=== PATIENT | male | born 1990 | race Caucasian/White ===

== ENCOUNTER 2016-11-23 14:37 | Emergency (ER) | payer OTHER ==
[~2016-11-23] VITALS: Ht 172.7 cm; Wt 68.0 kg
[~2016-11-23 14:37] MED LIST: ALBU0.212 IH; LORA10TA60 PO; OMEP20 PO
[2016-11-23] MEDS ORDERED: LIDOCAINE HCL 2% VISCOUS 15 ML SOLUTION UDCUP PO ONE (15:45)
[2016-11-23 17:05] VITALS: BP 115/78
[2016-11-23] MEDS ORDERED: IBUPROFEN 600 MG TABLET PO ONE (18:00)
== END 2016-11-23 17:53 | disposition home or self-care (01) ==
LOC: EMS 14:40
DX: S01.511A Laceration without foreign body of lip, initial encounter (principal); J45.909 Unspecified asthma, uncomplicated; Z91.018 Allergy to other foods; W22.8XXA Striking against or struck by other objects, initial encounter; Y93.89 Activity, other specified; Y92.89 Other specified places as the place of occurrence of the external cause; Y99.8 Other external cause status
CPT/HCPCS: 70140; 99284

== ENCOUNTER 2016-12-14 18:25 | Emergency (ER) | payer OTHER ==
[~2016-12-14] VITALS: Ht 175.3 cm; Wt 47.7 kg
[2016-12-14] MEDS ORDERED: MIRT15 PO (18:31)
[2016-12-14] MEDS ORDERED: LORazepam 2 MG/ML VIAL IM ONE (19:15)
[2016-12-14] MEDS ORDERED: SODIUM CHLORIDE 0.9% 1,000 ML IV ONE ×2 (19:15→23:30)
[2016-12-14 19:18] LABS: BASOPHILS % (AUTO) 0.7 % (0.0-2.0); EOSINOPHILS % (AUTO) 3.3 % (1.0-6.0); HEMATOCRIT 41.3 % (41-53); HEMOGLOBIN 14.1 g/dL (13.5-17.5); LYMPHOCYTES # (AUTO) 4.5 K/uL (1.0-4.8); LYMPHOCYTES % (AUTO) 33.6 % (22.0-44.0); MEAN CORPUSCULAR HEMOGLOBIN 30.6 pg (26.0-34.0); MEAN CORPUSCULAR VOLUME 90 fL (80-100); MONOCYTES # (AUTO) 0.6 K/uL (0.1-1.0); MONOCYTES % (AUTO) 4.7 % (2.0-9.0); NEUTROPHILS # (AUTO) 7.8 K/uL (1.8-7.7); NEUTROPHILS % (AUTO) 57.7 % (40.0-70.0); PLATELET COUNT (AUTO) 240 K/uL (150-450); RED CELL DISTRIBUTION WIDTH 12.7 % (11.5-14.5); WHITE BLOOD COUNT (AUTO) 13.5 K/uL (4.5-11.0)
[2016-12-14 19:30] LABS: ANION GAP 18 mmol/L (8-16); CALCIUM, TOTAL 9.4 mg/dL (8.8-10.5); CARBON DIOXIDE 22 mmol/L (22-29); CHLORIDE 101 mmol/L (98-107); CREATININE 1.07 mg/dL (0.60-1.30); GLOMERULAR FILTR. RATE CALC > 60 mL/min (>60); POTASSIUM 3.4 mmol/L (3.5-5.1); SODIUM SERUM 141 mmol/L (136-145); UREA NITROGEN, BLOOD 13 mg/dL (7-18)
[2016-12-14 19:37] LABS: ALANINE AMINOTRANSFERASE 26 U/L (12-78); ALBUMIN 4.7 g/dL (3.4-5.0); ASPARTATE AMINOTRANSFERASE 20 U/L (15-37); BILIRUBIN,TOTAL 0.4 mg/dL (0.1-1.0); TOTAL PROTEIN, SERUM 8.5 g/dL (6.4-8.2)
[2016-12-14 21:13] LABS: APPEARANCE,URINE CLOUDY (CLEAR); GLUCOSE, URINE (UA) NEGATIVE (NEGATIVE); KETONES,URINE >=80 mg/dL (NEGATIVE); LEUKOCYTE ESTERASE ,URINE NEGATIVE (NEGATIVE); OCCULT BLOOD,URINE MODERATE (NEGATIVE); PH,URINE 8.5 (5.0-8.0); PROTEIN,URINE TRACE (NEGATIVE)
[2016-12-14 21:17] LABS: ADD UA MICROSCOPIC YES
[2016-12-14 21:36] LABS: SQUAMOUS EPITHELIAL CELL,UR Few /LPF (None Seen)
[2016-12-14] MEDS ORDERED: ONDANSETRON HCL 4 MG/2 ML VIAL IVP ONE (23:30)
[2016-12-15 00:35] VITALS: BP 110/50
== END 2016-12-15 00:49 | disposition home or self-care (01) ==
LOC: EMS 18:26
DX: F41.9 Anxiety disorder, unspecified (principal); R11.2 Nausea with vomiting, unspecified; T50.905A Adverse effect of unspecified drugs, medicaments and biological substances, initial encounter; F32.9 Major depressive disorder, single episode, unspecified; I10 Essential (primary) hypertension; J45.909 Unspecified asthma, uncomplicated; R06.4 Hyperventilation; R42 Dizziness and giddiness; R51 Headache; Y92.89 Other specified places as the place of occurrence of the external cause
CPT/HCPCS: 36415; 70450; 80053; 80307; 81001; 83690; 85025; 93005; 96361; 96372; 96374; 96375; 99285; J2060; J2405; J7030

== ENCOUNTER 2017-03-26 07:25 | Emergency (ER) | payer OTHER ==
[~2017-03-26] VITALS: Ht 172.7 cm; Wt 50.0 kg
[~2017-03-26 07:25] MED LIST changes: +MIRT15 PO
[2017-03-26] MEDS ORDERED: BENZONATATE 100 MG CAPSULE PO ONE (09:15)
[2017-03-26] MEDS ORDERED: IBUPROFEN 800 MG TABLET PO ONE (09:15)
[2017-03-26 09:21] VITALS: BP 105/69
[2017-03-26 09:34] LABS: INFLUENZA TYPE B POSITIVE FOR TYPE B (NEGATIVE)
== END 2017-03-26 10:09 | disposition home or self-care (01) ==
LOC: EMS 07:28
DX: J11.1 Influenza due to unidentified influenza virus with other respiratory manifestations (principal); J45.909 Unspecified asthma, uncomplicated; Z88.8 Allergy status to other drugs, medicaments and biological substances; Z79.899 Other long term (current) drug therapy
CPT/HCPCS: 87430; 87804; 99284

== ENCOUNTER 2022-10-09 15:13 | Emergency (ER) | payer OTHER ==
[~2022-10-09] VITALS: Ht 172.7 cm; Wt 61.4 kg
[~2022-10-09 15:13] MED LIST changes: +MIRT-89 PO; -MIRT15 PO
[2022-10-09 15:18] VITALS: TEMP 98.5
[2022-10-09] MEDS ORDERED: SODIUM CHLORIDE 0.9% 1,000 ML IV ONE (16:15)
[2022-10-09] MEDS ORDERED: LOPERAMIDE HCL 2 MG CAPSULE PO ONE (16:15)
[2022-10-09] MEDS ORDERED: ONDANSETRON HCL 4 MG/2 ML VIAL IVP ONE (16:15)
[2022-10-09 17:13] LABS: BASOPHILS % (AUTO) 0.5 % (0.0-2.0); EOSINOPHILS % (AUTO) 1.9 % (1.0-6.0); HEMATOCRIT 42.3 % (41-53); LYMPHOCYTES # (AUTO) 1.9 K/uL (1.0-4.8); MEAN CORPUSCULAR HEMOGLOBIN 29.9 pg (26.0-34.0); MEAN CORPUSCULAR HGB CONC 33.1 G/dL (31.0-37.0); MEAN CORPUSCULAR VOLUME 90 fL (80-100); MONOCYTES # (AUTO) 0.6 K/uL (0.1-1.0); MONOCYTES % (AUTO) 9.9 % (2.0-9.0); NEUTROPHILS # (AUTO) 3.5 K/uL (1.8-7.7); NEUTROPHILS % (AUTO) 56.7 % (40.0-70.0); PLATELET COUNT (AUTO) 268 K/uL (150-450); RED BLOOD CELL COUNT(AUTO) 4.69 MIL/uL (4.50-5.90); RED CELL DISTRIBUTION WIDTH 13.1 % (11.5-14.5)
[2022-10-09 17:25] LABS: ANION GAP 9 mmol/L (8-16); CALCIUM, TOTAL 8.8 mg/dL (8.8-10.5); CARBON DIOXIDE 29 mmol/L (22-29); CHLORIDE 100 mmol/L (98-107); CREATININE 0.94 mg/dL (0.60-1.30); GLOMERULAR FILTR. RATE CALC > 60 mL/min (>60); GLUCOSE,RANDOM 91 mg/dL (70-110); POTASSIUM 4.4 mmol/L (3.5-5.1); SODIUM SERUM 138 mmol/L (136-145)
[2022-10-09 17:30] LABS: ALANINE AMINOTRANSFERASE 83 U/L (12-78); ALBUMIN 3.8 g/dL (3.4-5.0); ALKALINE PHOSPHATASE 126 U/L (46-116); ASPARTATE AMINOTRANSFERASE 37 U/L (15-37); BILIRUBIN,TOTAL 0.3 mg/dL (0.1-1.0); LIPASE 123 U/L (73-393); TOTAL PROTEIN, SERUM 8.1 g/dL (6.4-8.2)
[2022-10-09] MEDS ORDERED: LOPE-232 PO (17:37)
[2022-10-09] MEDS ORDERED: ONDA-104 PO (17:37)
[2022-10-09 18:23] VITALS: BP 110/65; PULSE 80; RESP 18
== END 2022-10-09 18:49 | disposition home or self-care (01) ==
LOC: EMS 15:14
DX: R19.7 Diarrhea, unspecified (principal); J45.909 Unspecified asthma, uncomplicated; F32.A Depression, unspecified; Z91.018 Allergy to other foods
CPT/HCPCS: 99283; 96374; 96361; 80053; 83690; 85025; 36415; J2405

== ENCOUNTER 2023-02-22 16:05 | Emergency (ER) | payer OTHER ==
[~2023-02-22] VITALS: Ht 172.7 cm; Wt 52.3 kg
[~2023-02-22 16:05] MED LIST changes: +LOPE-232 PO; +ONDA-104 PO
[2023-02-22 16:10] VITALS: TEMP 98.9
[2023-02-22] MEDS ORDERED: FAMO40TA7 PO (16:14)
[2023-02-22] MEDS ORDERED: FLUO118.6 TP (16:14)
[2023-02-22] MEDS ORDERED: IBUP-2076 PO (16:14)
[2023-02-22] MEDS ORDERED: DIVA-111 PO (16:14)
[2023-02-22] MEDS ORDERED: MIRT-92 PO (16:14)
[2023-02-22] MEDS: IBUPROFEN 600 MG TABLET PO ONE (18:33)
[2023-02-22] MEDS: CEPHALEXIN MONOHYDRATE 500 MG CAPSULE PO ONE (18:33)
[2023-02-22] MEDS: ACETAMINOPHEN/CODEINE 300-30 MG TABLET PO ONE (18:33)
[2023-02-22] MEDS: NEOMYCIN/POLYMYXIN B/HYDROCORT 10 ML OTIC SUSPENSION AU ONE (18:33)
[2023-02-22] MEDS ORDERED: ACET-66 PO (18:40)
[2023-02-22] MEDS ORDERED: CEPH-558 PO (18:40)
[2023-02-22] MEDS ORDERED: IBUP-1554 PO (18:40)
[2023-02-22] MEDS ORDERED: CORTSUSP AU (18:40)
[2023-02-22 18:47] VITALS: BP 132/74; PULSE 87; RESP 22
== END 2023-02-22 18:51 | disposition home or self-care (01) ==
LOC: EMS 16:05
DX: H60.93 Unspecified otitis externa, bilateral (principal); H66.91 Otitis media, unspecified, right ear; J45.909 Unspecified asthma, uncomplicated; F32.A Depression, unspecified; Z91.018 Allergy to other foods
CPT/HCPCS: 99284; 99285; Z7502; Z7610

== ENCOUNTER 2023-03-18 11:39 | Emergency (ER) | payer OTHER ==
[~2023-03-18] VITALS: Ht 172.7 cm; Wt 52.3 kg
[~2023-03-18 11:39] MED LIST changes: +ACET-66 PO; -ALBU0.212 IH; +CEPH-558 PO; +CORTSUSP AU; +DIVA-111 PO; +FAMO40TA7 PO; +FLUO118.6 TP; +IBUP-1554 PO; +IBUP-2076 PO; -LOPE-232 PO; -LORA10TA60 PO; -MIRT-89 PO; +MIRT-92 PO; -OMEP20 PO; -ONDA-104 PO
[2023-03-18 11:50] VITALS: TEMP 98.4
[2023-03-18] MEDS ORDERED: HYDR30CR39 TP (14:29)
[2023-03-18] MEDS ORDERED: HYDR-4527 PO (14:29)
[2023-03-18] MEDS ORDERED: DIVA-112 PO (14:29)
[2023-03-18] MEDS ORDERED: SIME180C70 PO (14:29)
[2023-03-18] MEDS ORDERED: CLOT30SO2 TP (14:29)
[2023-03-18] MEDS ORDERED: IBUP-2076 PO (14:30)
[2023-03-18] MEDS ORDERED: NEOMYCIN/POLYMYXIN B/HYDROCORT 10 ML OTIC SOLUTION AD ONE (14:30)
[2023-03-18] MEDS ORDERED: AMOX TR/POT CLAV 875 MG/125 MG TABLET PO ONE (14:30)
[2023-03-18] MEDS ORDERED: LORazepam 1 MG TABLET PO ONE (14:30)
[2023-03-18] MEDS ORDERED: ACET-3385 PO (14:44)
[2023-03-18] MEDS ORDERED: CORTSOL AD (14:44)
[2023-03-18] MEDS ORDERED: AMOX1TAB16 PO (14:44)
[2023-03-18 15:18] VITALS: BP 110/69; PULSE 64; RESP 16
== END 2023-03-18 15:19 | disposition home or self-care (01) ==
LOC: EMS 11:47
DX: H66.91 Otitis media, unspecified, right ear (principal); H60.91 Unspecified otitis externa, right ear; F41.9 Anxiety disorder, unspecified; J45.909 Unspecified asthma, uncomplicated; F32.A Depression, unspecified; Z91.018 Allergy to other foods
CPT/HCPCS: 99284; Z7502; Z7610

== ENCOUNTER 2023-03-21 00:39 | Inpatient (IN) | payer MEDICAID, OTHER ==
[~2023-03-21] VITALS: Ht 162.6 cm; Wt 63.0 kg
[~2023-03-21 00:39] MED LIST changes: +ACET-3385 PO; +AMOX1TAB16 PO; -CEPH-558 PO; +CLOT30SO2 TP; +CORTSOL AD; -CORTSUSP AU; +DIVA-112 PO; +HYDR-4527 PO; +HYDR30CR39 TP; -IBUP-1554 PO; +SIME180C70 PO
[2023-03-21] MEDS ORDERED: LORazepam 2 MG TABLET PO ONE (02:45)
[2023-03-21] MEDS ORDERED: HALOPERIDOL 5 MG TABLET PO PRN (03:00)
[2023-03-21] MEDS ORDERED: ZOLPIDEM TARTRATE 10 MG TABLET PO PRN (03:00)
[2023-03-21 03:02] LABS: BASOPHILS % (AUTO) 0.9 % (0.0-2.0); EOSINOPHILS % (AUTO) 3.8 % (1.0-6.0); HEMOGLOBIN 13.8 g/dL (13.5-17.5); LYMPHOCYTES # (AUTO) 3.2 K/uL (1.0-4.8); LYMPHOCYTES % (AUTO) 32.9 % (22.0-44.0); MEAN CORPUSCULAR HEMOGLOBIN 29.6 pg (26.0-34.0); MEAN CORPUSCULAR HGB CONC 33.5 G/dL (31.0-37.0); MEAN CORPUSCULAR VOLUME 88 fL (80-100); MONOCYTES # (AUTO) 0.8 K/uL (0.1-1.0); NEUTROPHILS # (AUTO) 5.3 K/uL (1.8-7.7); NEUTROPHILS % (AUTO) 54.4 % (40.0-70.0); PLATELET COUNT (AUTO) 312 K/uL (150-450); RED BLOOD CELL COUNT(AUTO) 4.65 MIL/uL (4.50-5.90); RED CELL DISTRIBUTION WIDTH 13.7 % (11.5-14.5); WHITE BLOOD COUNT (AUTO) 9.7 K/uL (4.5-11.0)
[2023-03-21 03:11] LABS: ANION GAP 10 mmol/L (8-16); CARBON DIOXIDE 27 mmol/L (22-29); CHLORIDE 98 mmol/L (98-107); CREATININE 0.93 mg/dL (0.60-1.30); GLOMERULAR FILTR. RATE CALC > 60 mL/min (>60); GLUCOSE,RANDOM 99 mg/dL (70-110); POTASSIUM 3.2 mmol/L (3.5-5.1); SODIUM SERUM 135 mmol/L (136-145); UREA NITROGEN, BLOOD 13 mg/dL (7-18)
[2023-03-21 03:13] LABS: ALCOHOL, BLOOD (SERUM) < 3 mg/dL (0-10)
[2023-03-21 03:16] LABS: ALANINE AMINOTRANSFERASE 25 U/L (12-78); ALBUMIN 4.8 g/dL (3.4-5.0); ALKALINE PHOSPHATASE 99 U/L (46-116); ASPARTATE AMINOTRANSFERASE 25 U/L (15-37); BILIRUBIN,TOTAL 0.7 mg/dL (0.1-1.0)
[2023-03-21 03:30] LABS: COVID AG,FIA SOURCE NASAL SWAB
[2023-03-21] MEDS ORDERED: POTASSIUM CHLORIDE 20 MEQ ER TABLET PO ONE (03:30)
[2023-03-21] MEDS ORDERED: HALOPERIDOL LACTATE 5 MG/ML VIAL IM ONE (03:45)
[2023-03-21] MEDS ORDERED: DiphenhydrAMINE HCL 50 MG/ML VIAL IM ONE (03:45)
[2023-03-21 03:48] LABS: SARS-COV2 (COVID) ANTIGEN,FIA Negative (Negative)
[2023-03-21 04:16] VITALS: BP 104/64; PULSE 81; RESP 18; TEMP 98.5; O2SAT 98
[2023-03-21] MEDS ORDERED: HydrOXYzine PAMOATE 50 MG CAPSULE PO PRN (08:00)
[2023-03-21] MEDS ORDERED: MAG HYDROX/ALUMINUM HYD/SIMETH ES 30 ML SUSPENSION UDCUP PO PRN (08:00)
[2023-03-21] MEDS ORDERED: GuaiFENesin/D-METHORPHAN [SUGAR-FREE] 200-20MG/10 ML SYRUP UDCUP PO PRN (08:00)
[2023-03-21] MEDS ORDERED: ACETAMINOPHEN 325 MG TABLET PO PRN (08:00)
[2023-03-21] MEDS ORDERED: MAGNESIUM HYDROXIDE SUSPENSION 30 ML UDCUP PO PRN (08:00)
[2023-03-21] MEDS ORDERED: TUBERCULIN, PURIFIED PROTEIN DERIVATIVE 5 TU/0.1 ML SYRINGE ID ONE (08:00)
[2023-03-21] MEDS ORDERED: LOPERAMIDE HCL 2 MG CAPSULE PO PRN (08:00)
[2023-03-21] MEDS ORDERED: QUEtiapine FUMARATE 100 MG TABLET PO PRN (08:00)
[2023-03-21 08:58] VITALS: BP 97/55; PULSE 89; RESP 18; TEMP 97.8; O2SAT 98
[2023-03-21] MEDS ORDERED: AMOX TR/POT CLAV 875 MG/125 MG TABLET PO SCH (09:00)
[2023-03-21] MEDS ORDERED: NEOMYCIN/POLYMYXIN B/HYDROCORT 10 ML OTIC SUSPENSION AU SCH (09:00)
[2023-03-21] MEDS ORDERED: AMOX TR/POT CLAV 875 MG/125 MG TABLET PO ONE (09:30)
[2023-03-21] MEDS: ZINC SULFATE 220 MG CAPSULE PO SCH ×3 (09:55→16:07)
[2023-03-21] MEDS: NEOMYCIN/POLYMYXIN B/HYDROCORT 10 ML OTIC SUSPENSION AU SCH ×3 (09:55→17:07)
[2023-03-21] MEDS: MULTIVITAMINS WITH MINERALS, THERAPEUTIC TABLET PO SCH (09:55)
[2023-03-21] MEDS: NALTREXONE HCL 50 MG TABLET PO SCH (09:55)
[2023-03-21] MEDS: THIAMINE 100 MG TABLET PO SCH ×2 (09:55→16:07)
[2023-03-21] MEDS: FOLIC ACID 1 MG TABLET PO SCH (09:55)
[2023-03-21] MEDS: AMOX TR/POT CLAV 875 MG/125 MG TABLET PO SCH ×2 (09:55→16:07)
[2023-03-21] MEDS: OMEGA-3/DHA/EPA/FISH OIL 1,000 MG CAPSULE PO SCH (09:56)
[2023-03-21] MEDS: MECLIZINE HCL 12.5 MG TABLET PO SCH ×4 (09:56→21:10)
[2023-03-21] MEDS: PROMETHAZINE HCL 25 MG TABLET PO PRN (12:01)
[2023-03-21] MEDS: LORazepam 2 MG TABLET PO PRN (12:29)
[2023-03-21] MEDS: NEOMYCIN/POLYMYXIN B/HYDROCORT 10 ML OTIC SOLUTION AU SCH ×2 (13:00→17:00)
[2023-03-21] MEDS ORDERED: QUEtiapine FUMARATE 200 MG TABLET PO SCH (21:00)
[2023-03-21] MEDS: MELATONIN 5 MG TABLET PO SCH (21:10)
[2023-03-21 21:15] VITALS: RESP 18
[2023-03-22] MEDS: ZINC SULFATE 220 MG CAPSULE PO SCH ×3 (08:20→16:39)
[2023-03-22] MEDS: NEOMYCIN/POLYMYXIN B/HYDROCORT 10 ML OTIC SUSPENSION AU SCH ×3 (08:20→16:38)
[2023-03-22] MEDS: OMEGA-3/DHA/EPA/FISH OIL 1,000 MG CAPSULE PO SCH (08:20)
[2023-03-22] MEDS: MULTIVITAMINS WITH MINERALS, THERAPEUTIC TABLET PO SCH (08:20)
[2023-03-22] MEDS: AMOX TR/POT CLAV 875 MG/125 MG TABLET PO SCH ×2 (08:21→16:38)
[2023-03-22] MEDS: FOLIC ACID 1 MG TABLET PO SCH (08:21)
[2023-03-22] MEDS: THIAMINE 100 MG TABLET PO SCH ×2 (08:21→16:39)
[2023-03-22] MEDS: NALTREXONE HCL 50 MG TABLET PO SCH (08:22)
[2023-03-22] MEDS: MECLIZINE HCL 12.5 MG TABLET PO SCH ×4 (08:22→21:32)
[2023-03-22] MEDS: NEOMYCIN/POLYMYXIN B/HYDROCORT 10 ML OTIC SOLUTION AU SCH ×4 (08:26→16:49)
[2023-03-22 08:27] LABS: CHOL/HDL RATIO 3.1 (4.2-7.3); FREE T4 (FREE THYROXINE) 1.33 ng/dL (0.76-1.46); THYROID STIMULATING HORMONE 0.74 uIU/mL (0.36-3.74)
[2023-03-22 10:08] VITALS: BP 120/66; PULSE 80; RESP 19; TEMP 97.9; O2SAT 97
[2023-03-22 10:12] LABS: POTASSIUM 3.8 mmol/L (3.5-5.1)
[2023-03-22] MEDS ORDERED: QUEtiapine FUMARATE 200 MG TABLET PO SCH (21:00)
[2023-03-22 21:27] VITALS: BP 130/68; PULSE 83; RESP 18; TEMP 98.1; O2SAT 98
[2023-03-22] MEDS: LORazepam 2 MG TABLET PO PRN (21:33)
[2023-03-22] MEDS: MELATONIN 5 MG TABLET PO SCH (21:34)
[2023-03-23 08:47] VITALS: BP 102/60; PULSE 117; RESP 18; TEMP 97.1; O2SAT 97
[2023-03-23] MEDS: OMEGA-3/DHA/EPA/FISH OIL 1,000 MG CAPSULE PO SCH (08:47)
[2023-03-23] MEDS: NEOMYCIN/POLYMYXIN B/HYDROCORT 10 ML OTIC SUSPENSION AU SCH ×3 (08:47→16:11)
[2023-03-23] MEDS: AMOX TR/POT CLAV 875 MG/125 MG TABLET PO SCH ×2 (08:48→16:12)
[2023-03-23] MEDS: NALTREXONE HCL 50 MG TABLET PO SCH (08:48)
[2023-03-23] MEDS: MECLIZINE HCL 12.5 MG TABLET PO SCH ×3 (08:48→16:11)
[2023-03-23] MEDS: ZINC SULFATE 220 MG CAPSULE PO SCH ×3 (08:48→16:11)
[2023-03-23] MEDS: FOLIC ACID 1 MG TABLET PO SCH (08:48)
[2023-03-23] MEDS: MULTIVITAMINS WITH MINERALS, THERAPEUTIC TABLET PO SCH (08:48)
[2023-03-23] MEDS: THIAMINE 100 MG TABLET PO SCH ×2 (08:48→16:11)
[2023-03-23] MEDS: NEOMYCIN/POLYMYXIN B/HYDROCORT 10 ML OTIC SOLUTION AU SCH ×3 (08:51→16:13)
[2023-03-23] MEDS ORDERED: OMEG-135 PO (16:29)
[2023-03-23] MEDS ORDERED: QUET300T19 PO (16:29)
[2023-03-23] MEDS ORDERED: MELA5TAB40 PO (16:29)
[2023-03-23] MEDS ORDERED: NALT50TA33 PO (16:29)
[2023-03-23] MEDS ORDERED: ZINC50CA3 PO (16:29)
[2023-03-23] MEDS ORDERED: MECL-302 PO (16:29)
[2023-03-23] MEDS: MECLIZINE HCL 25 MG TABLET PO SCH ×2 (16:42→20:45)
[2023-03-23] MEDS: PROMETHAZINE HCL 25 MG TABLET PO PRN (19:10)
[2023-03-23] MEDS: MELATONIN 5 MG TABLET PO SCH (20:44)
[2023-03-23 20:46] VITALS: BP 118/74; PULSE 71; RESP 18; TEMP 97.7; O2SAT 97
[2023-03-23] MEDS ORDERED: QUEtiapine FUMARATE 300 MG TABLET PO SCH (21:00)
[2023-03-24] MEDS: ZINC SULFATE 220 MG CAPSULE PO SCH (08:43)
[2023-03-24] MEDS: THIAMINE 100 MG TABLET PO SCH (08:43)
[2023-03-24] MEDS: MECLIZINE HCL 25 MG TABLET PO SCH (08:43)
[2023-03-24] MEDS: OMEGA-3/DHA/EPA/FISH OIL 1,000 MG CAPSULE PO SCH (08:43)
[2023-03-24] MEDS: NALTREXONE HCL 50 MG TABLET PO SCH (08:44)
[2023-03-24] MEDS: FOLIC ACID 1 MG TABLET PO SCH (08:44)
[2023-03-24] MEDS: MULTIVITAMINS WITH MINERALS, THERAPEUTIC TABLET PO SCH (08:45)
[2023-03-24] MEDS: NEOMYCIN/POLYMYXIN B/HYDROCORT 10 ML OTIC SOLUTION AU SCH (08:52)
[2023-03-24 08:56] VITALS: BP 122/75; PULSE 58; RESP 18; TEMP 97.6; O2SAT 100
== END 2023-03-24 17:46 | disposition home or self-care (01) | DRG 751 ==
LOC: EMS 00:40 → 3EX 04:34
PROVIDERS: ADMIT Psychiatry & Neurology Psychiatry; ATTEND Psychiatry & Neurology Psychiatry
PROC: GZHZZZZ Group Psychotherapy (ICD-10-PCS; principal; 2023-03-21)
PROC: GZ51ZZZ Individual Psychotherapy, Behavioral (ICD-10-PCS; 2023-03-21)
DX: F33.3 Major depressive disorder, recurrent, severe with psychotic symptoms (principal); R45.851 Suicidal ideations; E87.6 Hypokalemia; J45.909 Unspecified asthma, uncomplicated; K21.9 Gastro-esophageal reflux disease without esophagitis; Z20.822 Contact with and (suspected) exposure to COVID-19; T50.995A Adverse effect of other drugs, medicaments and biological substances, initial encounter; Y92.89 Other specified places as the place of occurrence of the external cause; F41.9 Anxiety disorder, unspecified; Z55.9 Problems related to education and literacy, unspecified; Z59.9 Problem related to housing and economic circumstances, unspecified; Z63.9 Problem related to primary support group, unspecified; Z65.3 Problems related to other legal circumstances; Z79.899 Other long term (current) drug therapy
CPT/HCPCS: 80053; 80061; 83036; 84132; 84439; 84443; 85025; 86592; 99285; G0378; G0480; J1200; J1630; Q9967

== ENCOUNTER 2023-03-30 13:50 | Emergency (ER) | payer MEDICAID, OTHER ==
[~2023-03-30] VITALS: Ht 172.7 cm; Wt 52.3 kg
[~2023-03-30 13:50] MED LIST changes: -ACET-3385 PO; -ACET-66 PO; -AMOX1TAB16 PO; -CLOT30SO2 TP; -CORTSOL AD; -DIVA-111 PO; -DIVA-112 PO; -FAMO40TA7 PO; -FLUO118.6 TP; -HYDR-4527 PO; -HYDR30CR39 TP; -IBUP-2076 PO; +MECL-302 PO; +MELA5TAB40 PO; -MIRT-92 PO; +NALT50TA33 PO; +OMEG-135 PO; +QUET300T19 PO; -SIME180C70 PO; +ZINC50CA3 PO
[2023-03-30 13:58] VITALS: TEMP 98.3
[2023-03-30] MEDS ORDERED: DiphenhydrAMINE HCL 25 MG CAPSULE PO ONE (15:15)
[2023-03-30] MEDS ORDERED: PredniSONE 20 MG TABLET PO ONE (15:15)
[2023-03-30 16:00] VITALS: BP 118/71; PULSE 98; RESP 17
[2023-03-30] MEDS ORDERED: PRED-554 PO (16:16)
[2023-03-30] MEDS ORDERED: DIPH25CA85 PO (16:17)
== END 2023-03-30 16:59 | disposition home or self-care (01) ==
LOC: EMS 13:50
DX: T78.40XA Allergy, unspecified, initial encounter (principal); F41.9 Anxiety disorder, unspecified; J45.909 Unspecified asthma, uncomplicated; F32.A Depression, unspecified; E73.9 Lactose intolerance, unspecified; Z91.018 Allergy to other foods; X58.XXXA Exposure to other specified factors, initial encounter
CPT/HCPCS: 99283; J7512

== ENCOUNTER 2023-04-16 07:00 | Emergency (ER) | payer OTHER ==
[~2023-04-16] VITALS: Ht 172.7 cm; Wt 52.3 kg
[~2023-04-16 07:00] MED LIST changes: +DIPH25CA85 PO; +PRED-554 PO
[2023-04-16 07:06] VITALS: TEMP 98.5
[2023-04-16] MEDS ORDERED: GABA-529 PO (07:08)
[2023-04-16] MEDS ORDERED: CITA10TA99 PO (07:08)
[2023-04-16] MEDS ORDERED: AMIT25TA9 PO (07:08)
[2023-04-16] MEDS ORDERED: LORazepam 1 MG TABLET PO ONE (08:30)
[2023-04-16] MEDS ORDERED: HydrOXYzine PAMOATE 25 MG CAPSULE PO ONE (09:45)
[2023-04-16] MEDS ORDERED: ZOLP-280 PO (09:51)
[2023-04-16 10:54] VITALS: BP 103/78; PULSE 86; RESP 18
== END 2023-04-16 11:06 | disposition home or self-care (01) ==
LOC: EMS 07:01
DX: G47.00 Insomnia, unspecified (principal); H93.13 Tinnitus, bilateral; F41.9 Anxiety disorder, unspecified; J45.909 Unspecified asthma, uncomplicated; F32.A Depression, unspecified; E73.9 Lactose intolerance, unspecified; Z91.018 Allergy to other foods
CPT/HCPCS: 99284; Z7502; Z7610

== ENCOUNTER 2023-04-20 11:58 | Emergency (ER) | payer OTHER ==
[~2023-04-20] VITALS: Ht 172.7 cm; Wt 115.0 kg
[~2023-04-20 11:58] MED LIST changes: +AMIT25TA9 PO; +CITA10TA99 PO; +GABA-529 PO; -MECL-302 PO; -PRED-554 PO; +ZOLP-280 PO
[2023-04-20 12:02] VITALS: TEMP 98.2
[2023-04-20] MEDS ORDERED: BUPR-49 PO (12:05)
[2023-04-20] MEDS ORDERED: LORazepam 1 MG TABLET PO ONE (13:30)
[2023-04-20 16:25] VITALS: BP 114/65; PULSE 78; RESP 18
== END 2023-04-20 16:25 | disposition home or self-care (01) ==
LOC: EMS 11:58
DX: G47.00 Insomnia, unspecified (principal); F41.9 Anxiety disorder, unspecified; J45.909 Unspecified asthma, uncomplicated; F32.A Depression, unspecified; E73.9 Lactose intolerance, unspecified; Z91.018 Allergy to other foods
CPT/HCPCS: 99283

== ENCOUNTER 2023-04-24 05:52 | Inpatient (IN) | payer MEDICAID, OTHER ==
[~2023-04-24] VITALS: Ht 172.7 cm; Wt 52.3 kg
[~2023-04-24 05:52] MED LIST changes: -AMIT25TA9 PO; +BUPR-49 PO; -CITA10TA99 PO; -DIPH25CA85 PO; -MELA5TAB40 PO; -NALT50TA33 PO; -OMEG-135 PO; -QUET300T19 PO; -ZINC50CA3 PO; -ZOLP-280 PO
[2023-04-24 07:01] LABS: EOSINOPHILS % (AUTO) 4.8 % (1.0-6.0); HEMATOCRIT 40.1 % (41-53); HEMOGLOBIN 13.5 g/dL (13.5-17.5); LYMPHOCYTES # (AUTO) 2.1 K/uL (1.0-4.8); LYMPHOCYTES % (AUTO) 31.2 % (22.0-44.0); MEAN CORPUSCULAR HGB CONC 33.7 G/dL (31.0-37.0); MEAN CORPUSCULAR VOLUME 89 fL (80-100); MONOCYTES # (AUTO) 0.6 K/uL (0.1-1.0); MONOCYTES % (AUTO) 8.6 % (2.0-9.0); NEUTROPHILS # (AUTO) 3.7 K/uL (1.8-7.7); NEUTROPHILS % (AUTO) 54.4 % (40.0-70.0); PLATELET COUNT (AUTO) 278 K/uL (150-450); RED BLOOD CELL COUNT(AUTO) 4.52 MIL/uL (4.50-5.90); RED CELL DISTRIBUTION WIDTH 13.7 % (11.5-14.5); WHITE BLOOD COUNT (AUTO) 6.8 K/uL (4.5-11.0)
[2023-04-24 07:11] LABS: ANION GAP 10 mmol/L (8-16); CALCIUM, TOTAL 9.6 mg/dL (8.8-10.5); CARBON DIOXIDE 29 mmol/L (22-29); CHLORIDE 104 mmol/L (98-107); CREATININE 1.01 mg/dL (0.60-1.30); GLOMERULAR FILTR. RATE CALC > 60 mL/min (>60); GLUCOSE,RANDOM 79 mg/dL (70-110); POTASSIUM 4.1 mmol/L (3.5-5.1); SODIUM SERUM 143 mmol/L (136-145); UREA NITROGEN, BLOOD 6 mg/dL (7-18)
[2023-04-24 07:14] LABS: ALCOHOL, BLOOD (SERUM) < 3 mg/dL (0-10)
[2023-04-24 07:26] LABS: ALANINE AMINOTRANSFERASE 30 U/L (12-78); ALBUMIN 4.3 g/dL (3.4-5.0); ALKALINE PHOSPHATASE 100 U/L (46-116); ASPARTATE AMINOTRANSFERASE 23 U/L (15-37); BILIRUBIN,TOTAL 0.4 mg/dL (0.1-1.0); TOTAL PROTEIN, SERUM 7.9 g/dL (6.4-8.2)
[2023-04-24 08:11] LABS: ALCOHOL, URINE DRUG SCREEN NEGATIVE (NEGATIVE); AMPHET/METH SCREEN,URINE NEGATIVE (NEGATIVE); BARBITURATE SCREEN, URINE NEGATIVE (NEGATIVE); BENZODIAZEPINES SCREEN,URINE NEGATIVE (NEGATIVE); CANNABINOID SCREEN,URINE NEGATIVE (NEGATIVE); COCAINE SCREEN,URINE NEGATIVE (NEGATIVE); METHADONE SCREEN, URINE NEGATIVE (NEGATIVE); OPIATE SCREEN,URINE NEGATIVE (NEGATIVE); PHENCYCLIDINE SCREEN,URINE NEGATIVE (NEGATIVE)
[2023-04-24] MEDS ORDERED: ONDANSETRON HCL 4 MG TABLET PO ONE (09:15)
[2023-04-24] MEDS ORDERED: MIRT-92 PO (12:51)
[2023-04-24] MEDS ORDERED: CLON0.1T2 PO (12:51)
[2023-04-24 13:00] LABS: COVID AG,FIA SOURCE NASAL SWAB
[2023-04-24 13:26] LABS: SARS-COV2 (COVID) ANTIGEN,FIA Negative (Negative)
[2023-04-24] MEDS: GABAPENTIN 100 MG CAPSULE PO SCH ×2 (14:56→17:42)
[2023-04-24] MEDS: HydrOXYzine PAMOATE 50 MG CAPSULE PO PRN (14:56)
[2023-04-24] MEDS ORDERED: ACETAMINOPHEN 500 MG TABLET PO ONE (15:30)
[2023-04-24 16:34] VITALS: BP 120/58; PULSE 81; RESP 18; TEMP 98.9
[2023-04-24] MEDS ORDERED: BACITRACIN 28 GM OINTMENT TP PRN (18:30)
[2023-04-24] MEDS ORDERED: BENZOCAINE/MENTHOL LOZENGE PO PRN (18:30)
[2023-04-24] MEDS ORDERED: OMEPRAZOLE 20 MG CAPSULE PO PRN (18:30)
[2023-04-24] MEDS ORDERED: ALBUTEROL SULFATE HFA 90 MCG/PUFF 8 GM INHALER IH PRN (18:30)
[2023-04-24] MEDS ORDERED: MAG HYDROX/ALUMINUM HYD/SIMETH ES 30 ML SUSPENSION UDCUP PO PRN (18:30)
[2023-04-24] MEDS ORDERED: MAGNESIUM HYDROXIDE SUSPENSION 30 ML UDCUP PO PRN (18:30)
[2023-04-24] MEDS ORDERED: CloNIDine HCL 0.1 MG TABLET PO PRN (18:30)
[2023-04-24] MEDS ORDERED: IBUPROFEN 600 MG TABLET PO PRN (18:30)
[2023-04-24] MEDS ORDERED: PETROLATUM,WHITE 28 GM JELLY TP PRN (18:30)
[2023-04-24] MEDS ORDERED: LOPERAMIDE HCL 2 MG CAPSULE PO PRN (18:30)
[2023-04-24] MEDS ORDERED: ONDANSETRON HCL 4 MG TABLET PO PRN (18:30)
[2023-04-24] MEDS ORDERED: ACETAMINOPHEN 325 MG TABLET PO PRN (18:30)
[2023-04-24] MEDS ORDERED: DOCUSATE SODIUM 100 MG CAPSULE PO PRN (18:30)
[2023-04-24 20:53] VITALS: BP 97/57; PULSE 89; RESP 18; TEMP 97.7
[2023-04-25] MEDS: ZOLPIDEM TARTRATE 5 MG TABLET PO PRN ×2 (00:36→21:16)
[2023-04-25] MEDS: HydrOXYzine PAMOATE 50 MG CAPSULE PO PRN (05:05)
[2023-04-25] MEDS: BuPROPion HCL XL 150 MG ER TABLET PO SCH ×2 (08:48→09:00)
[2023-04-25] MEDS: GABAPENTIN 100 MG CAPSULE PO SCH ×3 (08:48→16:04)
[2023-04-25 08:52] VITALS: BP 125/76; PULSE 93; RESP 18; TEMP 97.5
[2023-04-25] MEDS: MIRTAZAPINE 15 MG TABLET PO SCH (21:16)
[2023-04-25] MEDS ORDERED: ESZOPICLONE 2 MG TABLET PO PRN (22:15)
[2023-04-25 22:47] VITALS: BP 127/60; PULSE 78; RESP 18; TEMP 98.2
[2023-04-26 07:29] LABS: PHOSPHORUS 3.2 mg/dL (2.5-4.9)
[2023-04-26 08:38] VITALS: BP 109/80; PULSE 90; RESP 18; TEMP 97.7
[2023-04-26] MEDS: GABAPENTIN 100 MG CAPSULE PO SCH ×3 (09:36→16:27)
[2023-04-26] MEDS: MULTIVITAMINS WITH IRON TABLET PO SCH (09:36)
[2023-04-26] MEDS: THIAMINE 100 MG TABLET PO SCH (09:36)
[2023-04-26 13:22] VITALS: BP 118/67; PULSE 92; RESP 18; TEMP 98.2
[2023-04-26 14:25] VITALS: BP 120/79; PULSE 90; RESP 18; TEMP 97.6
[2023-04-26] MEDS: MIRTAZAPINE 15 MG TABLET PO SCH (20:51)
[2023-04-26] MEDS ORDERED: MELATONIN 5 MG TABLET PO SCH (21:00)
[2023-04-26] MEDS ORDERED: MELATONIN 3 MG TABLET PO SCH (21:00)
[2023-04-26 22:01] VITALS: BP 105/61; PULSE 87; RESP 18; TEMP 96.8
[2023-04-27] MEDS: MULTIVITAMINS WITH IRON TABLET PO SCH (09:36)
[2023-04-27] MEDS: THIAMINE 100 MG TABLET PO SCH (09:36)
[2023-04-27] MEDS: GABAPENTIN 100 MG CAPSULE PO SCH ×3 (09:36→16:28)
[2023-04-27 09:44] VITALS: BP 142/88; PULSE 91; RESP 19; TEMP 98.5
[2023-04-27] MEDS ORDERED: MELA5TAB40 PO (17:03)
[2023-04-27] MEDS ORDERED: TRAZ-252 PO (17:03)
== END 2023-04-27 18:08 | disposition home or self-care (01) | DRG 751 ==
LOC: EMS 05:52 → 3EX 15:19
PROVIDERS: ADMIT Psychiatry & Neurology Psychiatry; ATTEND Psychiatry & Neurology Psychiatry
DX: F33.2 Major depressive disorder, recurrent severe without psychotic features (principal); Z91.148 Patient's other noncompliance with medication regimen for other reason; R45.851 Suicidal ideations; E73.9 Lactose intolerance, unspecified; G47.00 Insomnia, unspecified; J45.909 Unspecified asthma, uncomplicated; K59.00 Constipation, unspecified; Z20.822 Contact with and (suspected) exposure to COVID-19; F17.200 Nicotine dependence, unspecified, uncomplicated; K21.9 Gastro-esophageal reflux disease without esophagitis; F41.9 Anxiety disorder, unspecified; F19.10 Other psychoactive substance abuse, uncomplicated; Z79.899 Other long term (current) drug therapy
CPT/HCPCS: 80053; 80307; 83735; 84100; 85025; 99285; G0378; G0480; Q0162; Q9967

== ENCOUNTER 2023-05-03 18:40 | Inpatient (IN) | payer MEDICAID ==
[~2023-05-03] VITALS: Ht 172.7 cm; Wt 63.0 kg
[~2023-05-03 18:40] MED LIST changes: -BUPR-49 PO; -GABA-529 PO; +MELA5TAB40 PO; +MIRT-92 PO; +TRAZ-252 PO
[2023-05-03] MEDS ORDERED: HALOPERIDOL LACTATE 5 MG/ML VIAL IM ONE (19:45)
[2023-05-03] MEDS ORDERED: LORazepam 2 MG/ML VIAL IM ONE (19:45)
[2023-05-03] MEDS ORDERED: DiphenhydrAMINE HCL 50 MG/ML VIAL IM ONE (19:45)
[2023-05-03 20:44] LABS: COVID AG,FIA SOURCE NASAL SWAB
[2023-05-03 21:04] LABS: SARS-COV2 (COVID) ANTIGEN,FIA Negative (Negative)
[2023-05-03 21:09] LABS: BASOPHILS % (AUTO) 0.8 % (0.0-2.0); EOSINOPHILS % (AUTO) 3.7 % (1.0-6.0); HEMATOCRIT 39.2 % (41-53); HEMOGLOBIN 12.9 g/dL (13.5-17.5); LYMPHOCYTES # (AUTO) 2.3 K/uL (1.0-4.8); LYMPHOCYTES % (AUTO) 23.8 % (22.0-44.0); MEAN CORPUSCULAR HEMOGLOBIN 29.3 pg (26.0-34.0); MEAN CORPUSCULAR HGB CONC 32.9 G/dL (31.0-37.0); MEAN CORPUSCULAR VOLUME 89 fL (80-100); MONOCYTES # (AUTO) 0.8 K/uL (0.1-1.0); MONOCYTES % (AUTO) 8.4 % (2.0-9.0); NEUTROPHILS # (AUTO) 6.1 K/uL (1.8-7.7); NEUTROPHILS % (AUTO) 63.3 % (40.0-70.0); PLATELET COUNT (AUTO) 316 K/uL (150-450); RED CELL DISTRIBUTION WIDTH 13.7 % (11.5-14.5); WHITE BLOOD COUNT (AUTO) 9.6 K/uL (4.5-11.0)
[2023-05-03 21:18] LABS: ANION GAP 7 mmol/L (8-16); CALCIUM, TOTAL 8.9 mg/dL (8.8-10.5); CARBON DIOXIDE 28 mmol/L (22-29); CHLORIDE 102 mmol/L (98-107); CREATININE 0.82 mg/dL (0.60-1.30); GLOMERULAR FILTR. RATE CALC > 60 mL/min (>60); GLUCOSE,RANDOM 99 mg/dL (70-110); POTASSIUM 3.4 mmol/L (3.5-5.1); SODIUM SERUM 137 mmol/L (136-145); UREA NITROGEN, BLOOD 13 mg/dL (7-18)
[2023-05-03 21:24] LABS: ALANINE AMINOTRANSFERASE 88 U/L (12-78); ALBUMIN 3.8 g/dL (3.4-5.0); ALKALINE PHOSPHATASE 129 U/L (46-116); ASPARTATE AMINOTRANSFERASE 65 U/L (15-37); BILIRUBIN,TOTAL 0.2 mg/dL (0.1-1.0); TOTAL PROTEIN, SERUM 7.4 g/dL (6.4-8.2)
[2023-05-03 21:31] LABS: ALCOHOL, BLOOD (SERUM) < 3 mg/dL (0-10)
[2023-05-04] MEDS: ZOLPIDEM TARTRATE 10 MG TABLET PO PRN (01:51)
[2023-05-04] MEDS: LORazepam 2 MG TABLET PO PRN ×2 (01:51→08:24)
[2023-05-04] MEDS: HALOPERIDOL 5 MG TABLET PO PRN ×2 (01:51→08:24)
[2023-05-04 03:53] VITALS: BP 129/60; PULSE 87; RESP 16; TEMP 97.6
[2023-05-04 05:26] VITALS: BP 129/60; PULSE 87; RESP 16; TEMP 97.6; O2SAT 99
[2023-05-04] MEDS ORDERED: ACETAMINOPHEN 325 MG TABLET PO PRN ×2 (05:30→22:00)
[2023-05-04] MEDS ORDERED: IBUPROFEN 600 MG TABLET PO PRN (05:30)
[2023-05-04] MEDS ORDERED: LOPERAMIDE HCL 2 MG CAPSULE PO PRN ×2 (05:30→22:00)
[2023-05-04] MEDS ORDERED: BACITRACIN 28 GM OINTMENT TP PRN (05:30)
[2023-05-04] MEDS ORDERED: PETROLATUM,WHITE 28 GM JELLY TP PRN (05:30)
[2023-05-04] MEDS ORDERED: ALBUTEROL SULFATE HFA 90 MCG/PUFF 8 GM INHALER IH PRN (05:30)
[2023-05-04] MEDS ORDERED: ONDANSETRON HCL 4 MG TABLET PO PRN (05:30)
[2023-05-04] MEDS ORDERED: MAGNESIUM HYDROXIDE SUSPENSION 30 ML UDCUP PO PRN ×2 (05:30→22:00)
[2023-05-04] MEDS ORDERED: POTASSIUM CHLORIDE 20 MEQ ER TABLET PO ONE (05:30)
[2023-05-04] MEDS ORDERED: DOCUSATE SODIUM 100 MG CAPSULE PO PRN (05:30)
[2023-05-04] MEDS ORDERED: CloNIDine HCL 0.1 MG TABLET PO PRN (05:30)
[2023-05-04] MEDS ORDERED: BENZOCAINE/MENTHOL LOZENGE PO PRN (05:30)
[2023-05-04] MEDS ORDERED: MAG HYDROX/ALUMINUM HYD/SIMETH ES 30 ML SUSPENSION UDCUP PO PRN ×2 (05:30→22:00)
[2023-05-04 10:00] VITALS: BP 114/87; PULSE 112; RESP 18; O2SAT 99
[2023-05-04 21:04] VITALS: BP 124/70; PULSE 80; RESP 17; TEMP 97.8; O2SAT 100
[2023-05-04] MEDS ORDERED: GuaiFENesin/D-METHORPHAN [SUGAR-FREE] 200-20MG/10 ML SYRUP UDCUP PO PRN (22:00)
[2023-05-04] MEDS ORDERED: TUBERCULIN, PURIFIED PROTEIN DERIVATIVE 5 TU/0.1 ML SYRINGE ID ONE (22:00)
[2023-05-04] MEDS ORDERED: HydrOXYzine PAMOATE 50 MG CAPSULE PO PRN (22:00)
[2023-05-04] MEDS ORDERED: PROMETHAZINE HCL 25 MG TABLET PO PRN (22:00)
[2023-05-05] MEDS: ZOLPIDEM TARTRATE 10 MG TABLET PO PRN ×2 (01:39→20:00)
[2023-05-05] MEDS: OMEPRAZOLE 20 MG CAPSULE PO PRN (08:31)
[2023-05-05 08:44] VITALS: BP 102/64; PULSE 117; RESP 16; TEMP 98.2; O2SAT 98
[2023-05-05] MEDS: DEXTROMETHORPHAN HBR/QUINIDINE 20/10 MG CAPSULE PO SCH (08:58)
[2023-05-05] MEDS: MULTIVITAMINS WITH MINERALS, THERAPEUTIC TABLET PO SCH (08:58)
[2023-05-05] MEDS: OMEGA-3/DHA/EPA/FISH OIL 1,000 MG CAPSULE PO SCH (08:58)
[2023-05-05] MEDS: FOLIC ACID 1 MG TABLET PO SCH (08:58)
[2023-05-05] MEDS: THIAMINE 100 MG TABLET PO SCH ×2 (08:59→16:37)
[2023-05-05 09:07] LABS: HEMOGLOBIN A1C 4.9 % (3.8-5.6)
[2023-05-05 09:25] LABS: ALANINE AMINOTRANSFERASE 81 U/L (12-78); ALBUMIN 4.1 g/dL (3.4-5.0); ALKALINE PHOSPHATASE 111 U/L (46-116); ANION GAP 9 mmol/L (8-16); ASPARTATE AMINOTRANSFERASE 54 U/L (15-37); BILIRUBIN,TOTAL 0.5 mg/dL (0.1-1.0); CALCIUM, TOTAL 9.6 mg/dL (8.8-10.5); CARBON DIOXIDE 28 mmol/L (22-29); CHLORIDE 101 mmol/L (98-107); CHOL/HDL RATIO 3.3 (4.2-7.3); CHOLESTEROL 227 mg/dL (131-200); FREE T4 (FREE THYROXINE) 1.15 ng/dL (0.76-1.46); GLOMERULAR FILTR. RATE CALC > 60 mL/min (>60); GLUCOSE,RANDOM 92 mg/dL (70-110); HDL CHOLESTEROL 68 mg/dL (40-60); LDL CHOL (CALC.) 144 mg/dL (0-130); POTASSIUM 3.9 mmol/L (3.5-5.1); SODIUM SERUM 138 mmol/L (136-145); THYROID STIMULATING HORMONE 0.88 uIU/mL (0.36-3.74); TRIGLYCERIDES 73 mg/dL (15-150); UREA NITROGEN, BLOOD 10 mg/dL (7-18)
[2023-05-05] MEDS: MIRTAZAPINE 30 MG TABLET PO SCH (20:00)
[2023-05-05] MEDS: MELATONIN 5 MG TABLET PO SCH (20:00)
[2023-05-05 21:00] VITALS: RESP 18
[2023-05-05] MEDS ORDERED: MIRTAZAPINE 15 MG TABLET PO SCH (21:00)
[2023-05-05 21:42] VITALS: BP 120/75; PULSE 89; RESP 17; TEMP 98; O2SAT 98
[2023-05-05 22:05] VITALS: RESP 18
[2023-05-05] MEDS: LORazepam 2 MG TABLET PO PRN (23:15)
[2023-05-05] MEDS: HALOPERIDOL 5 MG TABLET PO PRN (23:15)
[2023-05-06 08:16] VITALS: BP 128/70; PULSE 96; RESP 18; TEMP 97.2
[2023-05-06 08:49] LABS: APPEARANCE,URINE CLEAR (CLEAR); BILIRUBIN,URINE NEGATIVE (NEGATIVE); COLOR,URINE LIGHT YELLOW (YELLOW); GLUCOSE, URINE (UA) NEGATIVE (NEGATIVE); KETONES,URINE NEGATIVE (NEGATIVE); LEUKOCYTE ESTERASE ,URINE NEGATIVE (NEGATIVE); NITRATE,URINE NEGATIVE (NEGATIVE); OCCULT BLOOD,URINE NEGATIVE (NEGATIVE); PH,URINE 7.5 (5.0-8.0); PH,URINE DRUG SCREEN 7.5 (5.0-8.0); PROTEIN,URINE NEGATIVE (NEGATIVE); SPECIFIC GRAVITIY, URINE 1.007 (1.003-1.030); UROBILINOGEN,URINE <=1.0 mg/dL (<=1.0)
[2023-05-06 08:51] LABS: AMPHET/METH SCREEN,URINE NEGATIVE (NEGATIVE); BARBITURATE SCREEN, URINE NEGATIVE (NEGATIVE); BENZODIAZEPINES SCREEN,URINE NEGATIVE (NEGATIVE); CANNABINOID SCREEN,URINE NEGATIVE (NEGATIVE); COCAINE SCREEN,URINE NEGATIVE (NEGATIVE); METHADONE SCREEN, URINE NEGATIVE (NEGATIVE); OPIATE SCREEN,URINE NEGATIVE (NEGATIVE); PHENCYCLIDINE SCREEN,URINE NEGATIVE (NEGATIVE)
[2023-05-06] MEDS: MULTIVITAMINS WITH MINERALS, THERAPEUTIC TABLET PO SCH (08:56)
[2023-05-06] MEDS: THIAMINE 100 MG TABLET PO SCH ×2 (08:56→16:06)
[2023-05-06] MEDS: OMEGA-3/DHA/EPA/FISH OIL 1,000 MG CAPSULE PO SCH (08:56)
[2023-05-06] MEDS: DULoxetine HCL 20 MG CAPSULE PO SCH (08:56)
[2023-05-06] MEDS: DEXTROMETHORPHAN HBR/QUINIDINE 20/10 MG CAPSULE PO SCH (08:57)
[2023-05-06] MEDS: FOLIC ACID 1 MG TABLET PO SCH (08:57)
[2023-05-06 08:58] LABS: ALCOHOL, URINE DRUG SCREEN NEGATIVE (NEGATIVE)
[2023-05-06 20:00] VITALS: BP 116/78; PULSE 78; RESP 18; TEMP 97.4; O2SAT 98
[2023-05-06] MEDS: MIRTAZAPINE 30 MG TABLET PO SCH (20:10)
[2023-05-06] MEDS: MELATONIN 5 MG TABLET PO SCH (20:10)
[2023-05-06] MEDS: ZOLPIDEM TARTRATE 10 MG TABLET PO PRN (23:35)
[2023-05-07] MEDS: MULTIVITAMINS WITH MINERALS, THERAPEUTIC TABLET PO SCH (08:33)
[2023-05-07] MEDS: OMEGA-3/DHA/EPA/FISH OIL 1,000 MG CAPSULE PO SCH (08:33)
[2023-05-07] MEDS: DULoxetine HCL 20 MG CAPSULE PO SCH (08:33)
[2023-05-07] MEDS: THIAMINE 100 MG TABLET PO SCH ×2 (08:34→16:38)
[2023-05-07] MEDS: FOLIC ACID 1 MG TABLET PO SCH (08:34)
[2023-05-07] MEDS: DEXTROMETHORPHAN HBR/QUINIDINE 20/10 MG CAPSULE PO SCH (08:34)
[2023-05-07 09:18] VITALS: BP 111/65; PULSE 85; RESP 18; TEMP 98.7; O2SAT 97
[2023-05-07] MEDS: OMEPRAZOLE 20 MG CAPSULE PO PRN (09:36)
[2023-05-07 20:13] VITALS: BP 112/73; PULSE 91; RESP 18; TEMP 98.3; O2SAT 98
[2023-05-07] MEDS: LORazepam 2 MG TABLET PO PRN (20:14)
[2023-05-07] MEDS: MELATONIN 5 MG TABLET PO SCH (20:14)
[2023-05-07] MEDS: MIRTAZAPINE 30 MG TABLET PO SCH (20:14)
[2023-05-08 08:34] VITALS: BP 121/71; PULSE 120; RESP 17; TEMP 98.2; O2SAT 97
[2023-05-08] MEDS: OMEGA-3/DHA/EPA/FISH OIL 1,000 MG CAPSULE PO SCH (08:35)
[2023-05-08] MEDS: DULoxetine HCL 20 MG CAPSULE PO SCH (08:35)
[2023-05-08] MEDS: MULTIVITAMINS WITH MINERALS, THERAPEUTIC TABLET PO SCH (08:35)
[2023-05-08] MEDS: FOLIC ACID 1 MG TABLET PO SCH (08:35)
[2023-05-08] MEDS: THIAMINE 100 MG TABLET PO SCH ×2 (08:36→16:09)
[2023-05-08] MEDS: DEXTROMETHORPHAN HBR/QUINIDINE 20/10 MG CAPSULE PO SCH (08:36)
[2023-05-08] MEDS: LORazepam 2 MG TABLET PO PRN (13:41)
[2023-05-08 13:42] VITALS: BP 112/79; PULSE 104; RESP 17; TEMP 97.7; O2SAT 98
[2023-05-08] MEDS ORDERED: DULO20CA71 PO (15:51)
[2023-05-08] MEDS ORDERED: MELA5TAB40 PO (15:51)
[2023-05-08] MEDS ORDERED: OMEG-135 PO (15:51)
[2023-05-08] MEDS ORDERED: MIRT-149 PO (15:51)
== END 2023-05-08 17:30 | disposition home or self-care (01) | DRG 751 ==
LOC: EMS 18:40 → B3A 05-04 00:06 → B2S 05-04 17:32
PROVIDERS: ADMIT Psychiatry & Neurology Psychiatry; ATTEND Psychiatry & Neurology Psychiatry
PROC: GZHZZZZ Group Psychotherapy (ICD-10-PCS; principal; 2023-05-04)
PROC: GZ51ZZZ Individual Psychotherapy, Behavioral (ICD-10-PCS; 2023-05-04)
DX: F33.2 Major depressive disorder, recurrent severe without psychotic features (principal); R45.851 Suicidal ideations; F15.10 Other stimulant abuse, uncomplicated; Z20.822 Contact with and (suspected) exposure to COVID-19; F17.210 Nicotine dependence, cigarettes, uncomplicated; F20.9 Schizophrenia, unspecified; G47.00 Insomnia, unspecified; F41.9 Anxiety disorder, unspecified; K59.00 Constipation, unspecified; J45.909 Unspecified asthma, uncomplicated; E73.9 Lactose intolerance, unspecified; K21.9 Gastro-esophageal reflux disease without esophagitis; Z91.018 Allergy to other foods
CPT/HCPCS: 80053; 80061; 80307; 81003; 83036; 84439; 84443; 85025; 86592; 99285; G0480; J1200; J1630; J2060; Q0162; Q9967

== ENCOUNTER 2023-05-19 18:42 | Emergency (ER) | payer MEDICAID, OTHER ==
[~2023-05-19] VITALS: Ht 165.1 cm; Wt 61.4 kg
[~2023-05-19 18:42] MED LIST changes: +DULO20CA71 PO; +MIRT-149 PO; -MIRT-92 PO; +OMEG-135 PO; -TRAZ-252 PO
[2023-05-19 19:00] VITALS: TEMP 98.9
[2023-05-19] MEDS: ACETAMINOPHEN 500 MG TABLET PO ONE (19:52)
[2023-05-19] MEDS: IBUPROFEN 600 MG TABLET PO ONE (19:52)
[2023-05-19] MEDS: LORazepam 2 MG/ML VIAL IM ONE (19:52)
[2023-05-19] MEDS: GuaiFENesin/D-METHORPHAN [SUGAR-FREE] 200-20MG/10 ML SYRUP UDCUP PO ONE (19:52)
[2023-05-19 19:57] LABS: BASOPHILS % (AUTO) 0.7 % (0.0-2.0); EOSINOPHILS % (AUTO) 1.7 % (1.0-6.0); HEMATOCRIT 40.8 % (41-53); HEMOGLOBIN 13.6 g/dL (13.5-17.5); LYMPHOCYTES # (AUTO) 2.1 K/uL (1.0-4.8); LYMPHOCYTES % (AUTO) 19.1 % (22.0-44.0); MEAN CORPUSCULAR HEMOGLOBIN 29.1 pg (26.0-34.0); MEAN CORPUSCULAR HGB CONC 33.4 G/dL (31.0-37.0); MEAN CORPUSCULAR VOLUME 87 fL (80-100); NEUTROPHILS # (AUTO) 7.5 K/uL (1.8-7.7); NEUTROPHILS % (AUTO) 69.5 % (40.0-70.0); PLATELET COUNT (AUTO) 318 K/uL (150-450); RED BLOOD CELL COUNT(AUTO) 4.69 MIL/uL (4.50-5.90); RED CELL DISTRIBUTION WIDTH 13.2 % (11.5-14.5); WHITE BLOOD COUNT (AUTO) 10.8 K/uL (4.5-11.0)
[2023-05-19 20:06] LABS: ANION GAP 12 mmol/L (8-16); CALCIUM, TOTAL 9.6 mg/dL (8.8-10.5); CARBON DIOXIDE 27 mmol/L (22-29); CHLORIDE 99 mmol/L (98-107); CREATININE 1.01 mg/dL (0.60-1.30); GLOMERULAR FILTR. RATE CALC > 60 mL/min (>60); GLUCOSE,RANDOM 106 mg/dL (70-110); POTASSIUM 3.3 mmol/L (3.5-5.1); SODIUM SERUM 137 mmol/L (136-145); UREA NITROGEN, BLOOD 13 mg/dL (7-18)
[2023-05-19 20:11] LABS: ALANINE AMINOTRANSFERASE 63 U/L (12-78); ALKALINE PHOSPHATASE 124 U/L (46-116); ASPARTATE AMINOTRANSFERASE 22 U/L (15-37); BILIRUBIN,TOTAL 0.5 mg/dL (0.1-1.0); LIPASE 37 U/L (16-77); TOTAL PROTEIN, SERUM 8.3 g/dL (6.4-8.2)
[2023-05-19 20:44] LABS: LACTIC ACID 2.5 mmol/L (0.4-2.0)
[2023-05-19 20:56] VITALS: BP 106/66; PULSE 99; RESP 18
[2023-05-19 21:31] LABS: ALCOHOL, BLOOD (SERUM) < 3 mg/dL (0-10)
[2023-05-19 21:38] LABS: COVID AG,FIA SOURCE NASAL SWAB
[2023-05-19 22:00] LABS: INFLUENZA TYPE A NEGATIVE FOR TYPE A (NEGATIVE); INFLUENZA TYPE B NEGATIVE FOR TYPE B (NEGATIVE)
[2023-05-19] MEDS ORDERED: IBUP-1554 PO (22:14)
[2023-05-19] MEDS ORDERED: ACET-66 PO (22:14)
[2023-05-19] MEDS ORDERED: GUAIFDM PO (22:14)
[2023-05-19 22:18] LABS: SARS-COV2 (COVID) ANTIGEN,FIA Positive (Negative)
[2023-05-19] MEDS: POTASSIUM CHLORIDE 10% 40 MEQ/30 ML LIQUID UDCUP PO ONE (22:25)
== END 2023-05-19 22:34 | disposition home or self-care (01) ==
LOC: EMS 18:43
DX: U07.1 COVID-19 (principal); F32.9 Major depressive disorder, single episode, unspecified; E87.6 Hypokalemia; F41.9 Anxiety disorder, unspecified; Z98.890 Other specified postprocedural states; Z91.018 Allergy to other foods; E73.9 Lactose intolerance, unspecified
CPT/HCPCS: 99284; 71045; 87426; 80053; 83605; 83690; 85025; 87804; 36415; 96372; G0480; J2060